=== PATIENT | male | born 1965 | race Two or more races ===

== ENCOUNTER 2024-01-02 09:35 | Emergency (ER) | payer BC, MEDICAID ==
[~2024-01-02] VITALS: Ht 175.3 cm; Wt 73.0 kg
[2024-01-02 09:39] VITALS: TEMP 97.8; O2SAT 100
[2024-01-02] MEDS ORDERED: KEPP500 MT ×2 (09:43→15:49)
[2024-01-02] MEDS: LEVETIRACETAM 500MG TABLET PO ONE (09:56)
[2024-01-02 10:51] VITALS: BP 133/64; PULSE 121; RESP 20
== END 2024-01-02 13:37 | disposition home or self-care (01) ==
LOC: ER 09:35
DX: R56.9 Unspecified convulsions (principal)
CPT/HCPCS: 99283

== ENCOUNTER 2024-01-02 13:56 | Emergency (ER) | payer MEDICAID ==
[~2024-01-02] VITALS: Ht 170.2 cm; Wt 72.0 kg
[~2024-01-02 13:56] MED LIST: KEPP500 MT
[2024-01-02 14:25] VITALS: BP 154/77; PULSE 69; RESP 15; TEMP 97.9; O2SAT 100
[2024-01-02] MEDS ORDERED: KEPP500 MT (15:49)
== END 2024-01-02 16:11 | disposition home or self-care (01) ==
LOC: ER 14:36
DX: R56.9 Unspecified convulsions (principal); Z76.0 Encounter for issue of repeat prescription
CPT/HCPCS: 99281

== ENCOUNTER 2024-01-02 16:42 | Emergency (ER) | payer MEDICAID ==
[2024-01-02 16:51] VITALS: PULSE 86
== END 2024-01-02 18:10 | disposition left against medical advice (07) ==
LOC: ER 16:42
DX: R56.9 Unspecified convulsions (principal); Z53.21 Procedure and treatment not carried out due to patient leaving prior to being seen by health care provider